=== PATIENT | male | born 1970 | race African-American/Black ===

== ENCOUNTER 2024-11-27 16:26 | Emergency (ER) | payer OTHER, SELFPAY ==
[2024-11-27] VITALS (30 sets, daily range): BP systolic 88–164; BP diastolic 56–112; PULSE 66–100; TEMP 36.1; O2SAT 82–99; BMI 35.9
--- NOTE | 2024-11-27 16:40 | ECG_ITS ---
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 Measurements Intervals [place] Rate: 74 P: 52 MD: 154 QRS: 7 QRSD: 88 T: 49 QT: 384 QTc: 412 Interpretive Statements 1100 Sinus rhythm 9110 normal ECG No previous ECG available for comparison Electronically Signed On 11-28-2024 7:34:51 EDT by RIVAS WINCHESTER M.D.
--- NOTE | 2024-11-27 16:41 | ED_ITS ---
HPI HPI - General Adult General Chief complaint: Altered Mental Status Stated complaint: Nausea/Vomiting/Diarrhea Time Seen by Provider: 11/27/24 16:37 History of Present Illness HPI narrative: 54-year-old male presented by ambulance from his workplace for weakness. They reported that he seemed to be drowsy and they transported him here. He apparently has a history of diabetes. He does not seem to have any physical complaints and is not able to provide us a good history. Is noted to have a bag of THC Gummies hanging out of his pocket. Related Data Allergies Allergy/AdvReac Type Severity Reaction Status Date / Time Penicillins Allergy Unknown Verified 11/27/24 16:45 enatril AdvReac Unknown Uncoded 11/27/24 16:45 Review of Systems ROS Narrative Not obtainable, altered mental status Exam Narrative Exam Narrative: Nurses note and vital signs reviewed and patient is not hypoxic. General:The patient appears and in no acute respiratory distress. She seems to prefer to keep his eyes closed but will open them when spoken to. Skin:Warm, dry, no pallor noted.There is no rash noted. Head:Normocephalic, atraumatic Eye: Normal conjunctiva, no drainage, EOMI. PERRL Ears, Nose, Mouth, and Throat: oral mucosa is moist. Nares patent. Cardiovascular:Regular Rate and Rhythm Respiratory:Patient is in no distress, no accessory muscle use, lungs are clear to auscultation, no wheezing, rales or rhonchi GI: Nontender Musculoskeletal: The patient has no evidence of calf tenderness, no pitting edema, symmetrical pulses noted bilaterally Neurological: Drowsy but oriented to self and place and year Psychiatric:Cooperative Constitutional Vital Signs, click to edit/add: Last Vital Signs Temp 97.0 F L 11/27/24 16:45 Pulse 82 11/27/24 17:10 Resp 15 11/27/24 17:10 BP 160/96 H 11/27/24 16:45 Pulse Ox 84 L 11/27/24 17:17 O2 Del Method Nasal Cannula 11/27/24 17:17 O2 Flow Rate 3 11/27/24 17:17 Course Vital Signs Vital signs: Vital Signs Temperature 97.0 F L 11/27/24 16:45 Pulse Rate 96 H 11/27/24 16:45 Respiratory Rate 18 11/27/24 16:45 Blood Pressure 160/96 H 11/27/24 16:45 Temperature 97.0 F L 11/27/24 16:45 Pulse Rate 82 11/27/24 17:10 Respiratory Rate 15 11/27/24 17:10 Blood Pressure 160/96 H 11/27/24 16:45 Pulse Oximetry 84 L 11/27/24 17:17 Oxygen Delivery Method Nasal Cannula 11/27/24 17:17 Oxygen Delivery Flow Rate 3 11/27/24 17:17 Medical Decision Making MDM Narrative Medical decision making narrative: The patient presents with altered mental status. His workup is negative except for drug screen pending and he has THC Gummies with him. His vital signs are stable and his workup thus far is negative. He will awake when spoken to but then goes back to sleep. Being observed and was signed out to Dr. Rachel at change of shift. Differential Diagnosis Differential Diagnosis: Substance abuse, dehydration, hypoglycemia, intracranial hemorrhage Lab Data Lab results reviewed: Yes I reviewed the patient's lab results Labs: Lab Results 11/27/24 11/27/24 Range/Units 16:39 16:46 WBC 7.9 (4.0-11.0) 10^3/uL RBC 4.96 (4.70-6.10) 10^6/uL Hgb 14.8 (14.0-18.0) g/dL Hct 44.8 (42.0-54.0) % MCV 90.3 (80.0-94.0) fL MCH 29.8 (25.9-34.0) pg MCHC 33.0 (29.9-35.2) g/dL RDW 13.0 (11.0-15.0) % Plt Count 246 (150-450) 10^3/uL MPV 10.6 (9.5-13.5) fL Neut % (Auto) 82.3 H (43.0-75.0) % Lymph % (Auto) 12.0 L (20.5-60.0) % [place] % (Auto) 5.1 (1.7-12.0) % Eos % (Auto) 0.1 L (0.9-7.0) % Baso % (Auto) 0.1 L (0.2-2.0) % Neut # (Auto) 6.5 (1.4-6.5) 10^3/uL Lymph # (Auto) 1.0 L (1.2-3.8) 10^3/uL [place] # (Auto) 0.4 (0.3-0.8) 10^3/uL Eos # (Auto) 0.0 (0.0-0.7) 10^3/uL Baso # (Auto) 0.0 (0.0-0.1) 10^3/uL Abs Immat Gran (auto) 0.03 (0.00-0.03) 10^3/uL Imm/Tot Granulo (auto) 0.4 (0.0-0.5) % Sodium 141 (136-145) mmol/L Potassium 4.3 (3.5-5.1) mmol/L Chloride 103 (98-107) mmol/L Carbon Dioxide 30.4 (21.0-32.0) mmol/L Anion Gap 11.9 BUN 10.0 (7.0-18.0) mg/dL Creatinine 1.13 (0.70-1.30) mg/dL Est GFR ( Amer) >60 (>=60 mL/min/1.73m^2) Est GFR (Non-Af Amer) >60 (>=60 mL/min/1.73m^2) BUN/Creatinine Ratio 8.8 Glucose 145 H (74-106) mg/dL Calcium 9.6 (8.5-10.1) mg/dL Troponin I High Sens 5.6 (4.0-76.1) pg/mL Ethanol Quant <3 mg/dL POC Glucose 131 H (74-106) mg/dL Imaging Data CT scan - head: Radiologist's impression: ITS Impressions Chest X-Ray 11/27/24 16:41 Impression: Negative acute pleural-parenchymal disease. Impression dictated by: Roni Toure M.D. 11/27/2024 5:44 PM Dictation Location: [facility] Electronically authenticated by: [id number] Y Date: 11/27/2024 17:[address] 11/27/24 16:41 IMPRESSION: NO ACUTE INTRACRANIAL ABNORMALITY. Impression dictated by: Roni Toure M.D. 11/27/2024 5:45 PM Dictation Location: [facility] Electronically authenticated by: [id number] Y Date: 11/27/2024 17:45 ECG Data Attestation: I personally reviewed and interpreted this ECG as follows: (EKG my interpretation shows sinus rhythm with a rate of 74 no acute change) Discharge Plan Discharge Patient Disposition: Still a Patient
--- NOTE | 2024-11-27 16:41 | CT_ITS ---
The [address] [address] Patient Name: BELINDA NOLAND MRN: [id number] date: 1970 Sex: M Assigned Patient Location: ED.MAIN Current Patient Location: ED.MAIN Accession/Order Number: [id number] Exam Date: 11/27/2024 17:25 Report Date: 11/27/2024 17:45 At the request of: COLEMAN LEMA MD Procedure: CT head/brain wo con CT BRAIN WITHOUT CONTRAST: CLINICAL HISTORY: weak COMPARISON: None TECHNIQUE: Contiguous axial unenhanced images were obtained through the brain. This CT exam was performed using one or more following dose reduction techniques: Automated exposure control, adjustment of the mA and/or kV according to patient size, or use of iterative reconstruction technique. FINDINGS: There is no evidence of midline shift, intra or extra-axial fluid collection, hemorrhage or CT evidence of acute large vascular distribution stroke Visualized intraorbital contents appear unremarkable. Visualized paranasal sinuses are clear. The surrounding soft tissues are normal. CT/CT head/brain wo con IMPRESSION: NO ACUTE INTRACRANIAL ABNORMALITY. Impression dictated by: Roni Toure M.D. 11/27/2024 5:45 PM Dictation Location: [place] [address] Electronically authenticated by: [id number] Y Date: 11/27/2024 17:45
--- NOTE | 2024-11-27 16:41 | XR_ITS ---
The [address] [address] Patient Name: BELINDA NOLAND MRN: [id number] date: 1970 Sex: M Assigned Patient Location: ED.MAIN Current Patient Location: ED.MAIN Accession/Order Number: [id number] Exam Date: 11/27/2024 17:25 Report Date: 11/27/2024 17:44 At the request of: COLEMAN LEMA MD Procedure: XR chest 1V Single frontal view chest INDICATION: Weakness FINDINGS: A large cardiomediastinal silhouette. Lungs are clear. No definite airspace disease effusion or pneumothorax. XR/XR chest 1V Impression: Negative acute pleural-parenchymal disease. Impression dictated by: Roni Toure M.D. 11/27/2024 5:44 PM Dictation Location: [place] [address] Electronically authenticated by: [id number] Y Date: 11/27/2024 17:44
[2024-11-27 16:52] LABS: Hematocrit 44.8 % (42.0-54.0); Hemoglobin 14.8 g/dL (14.0-18.0); Immature Granulocytes Abs Auto 0.03 10^3/uL (0.00-0.03); Immature Granulocytes Pct Auto 0.4 % (0.0-0.5); Lymphocytes Absolute Auto 1.0 10^3/uL (1.2-3.8); Mean Corpuscular HGB Conc 33.0 g/dL (29.9-35.2); Mean Corpuscular Hemoglobin 29.8 pg (25.9-34.0); Mean Corpuscular Volume 90.3 fL (80.0-94.0); Platelet Count 246 10^3/uL (150-450); Red Blood Count 4.96 10^6/uL (4.70-6.10); White Blood Count 7.9 10^3/uL (4.0-11.0)
[2024-11-27 17:02] LABS: Anion Gap 11.9; Blood Urea Nitrogen 10.0 mg/dL (7.0-18.0); Calcium 9.6 mg/dL (8.5-10.1); Carbon Dioxide 30.4 mmol/L (21.0-32.0); Chloride 103 mmol/L (98-107); Estimated GFR (African America >60 (>=60 mL/min/1.73m^2); Estimated GFR (Non-African Ame >60 (>=60 mL/min/1.73m^2); Glucose 145 mg/dL (74-106); Potassium 4.3 mmol/L (3.5-5.1); Sodium 141 mmol/L (136-145)
--- NOTE | 2024-11-27 18:06 | PC.NURSE ---
pt sleeping on cart, no distress noted
== END 2024-11-27 23:15 | disposition home or self-care (01) ==
PROVIDERS: Emergency Medicine; Emergency Provider Internal Medicine
DX: R41.82 Altered mental status, unspecified (principal); F12.929 Cannabis use, unspecified with intoxication, unspecified; E11.9 Type 2 diabetes mellitus without complications
CPT/HCPCS: 36415; 70450; 71045; 80048; 80307; 80320; 81001; 84484; 85025; 93005; 99285